=== PATIENT | male | born 1985 | race Caucasian/White ===

== ENCOUNTER 2023-03-21 07:05 | Outpatient (RCR) | payer OTHER, SELFPAY | END 2023-03-21 23:59 | disposition home or self-care (01) | LOC: ROT 07:05 | PROVIDERS: ATTENDING PHYSICIAN Physical Medicine & Rehabilitation; FAMILY PHYSICIAN Family Medicine | DX: I69.320 Aphasia following cerebral infarction (principal); I69.311 Memory deficit following cerebral infarction; Z73.6 Limitation of activities due to disability; I69.328 Other speech and language deficits following cerebral infarction | CPT/HCPCS: 92507; 97530; 97535; 97537 ==

== ENCOUNTER 2023-04-11 06:29 | Outpatient (RCR) | payer OTHER, SELFPAY | END 2023-04-11 23:59 | disposition home or self-care (01) | LOC: ROT 06:29 | PROVIDERS: ATTENDING PHYSICIAN Physical Medicine & Rehabilitation; FAMILY PHYSICIAN Family Medicine | DX: I69.320 Aphasia following cerebral infarction (principal); I69.311 Memory deficit following cerebral infarction; Z73.6 Limitation of activities due to disability; I69.328 Other speech and language deficits following cerebral infarction | CPT/HCPCS: 92507 ==

== ENCOUNTER 2023-05-16 06:42 | Outpatient (RCR) | payer OTHER, SELFPAY | END 2023-05-16 23:59 | disposition home or self-care (01) | LOC: ROT 06:42 | PROVIDERS: ATTENDING PHYSICIAN Physical Medicine & Rehabilitation; FAMILY PHYSICIAN Family Medicine | DX: I69.320 Aphasia following cerebral infarction (principal); I69.311 Memory deficit following cerebral infarction; Z73.6 Limitation of activities due to disability; I69.328 Other speech and language deficits following cerebral infarction; I69.319 Unspecified symptoms and signs involving cognitive functions following cerebral infarction | CPT/HCPCS: 92507 ==

== ENCOUNTER 2023-06-13 07:04 | Outpatient (RCR) | payer OTHER, SELFPAY | END 2023-06-13 23:59 | disposition home or self-care (01) | LOC: ROT 07:04 | PROVIDERS: ATTENDING PHYSICIAN Physical Medicine & Rehabilitation; FAMILY PHYSICIAN Family Medicine | DX: I69.320 Aphasia following cerebral infarction (principal); I69.311 Memory deficit following cerebral infarction; Z73.6 Limitation of activities due to disability; I69.328 Other speech and language deficits following cerebral infarction; I69.319 Unspecified symptoms and signs involving cognitive functions following cerebral infarction | CPT/HCPCS: 92507 ==

== ENCOUNTER 2023-06-20 06:56 | Outpatient (RCR) | payer OTHER, SELFPAY | END 2023-06-20 23:59 | disposition home or self-care (01) | LOC: ROT 06:56 | PROVIDERS: ATTENDING PHYSICIAN Physical Medicine & Rehabilitation; FAMILY PHYSICIAN Family Medicine | DX: I69.320 Aphasia following cerebral infarction (principal); I69.311 Memory deficit following cerebral infarction; Z73.6 Limitation of activities due to disability; I69.328 Other speech and language deficits following cerebral infarction; I69.319 Unspecified symptoms and signs involving cognitive functions following cerebral infarction | CPT/HCPCS: 92507 ==